=== PATIENT | male | born 1985 | race Caucasian/White ===

== ENCOUNTER 2018-07-17 16:51 | Outpatient (CLI) | payer BC, SELFPAY ==
[2018-07-17 17:03] LABS: Bilirubin Negative (Negative); Blood Negative (Negative); Clarity Clear; Glucose Negative (Negative); Ketones Negative (Negative); Leukocyte Esterase Negative (Negative); Nitrite Negative (Negative); Urobilinogen 0.2 EU/dL (Up TO 0.2)
== END 2018-07-17 17:11 ==
PROVIDERS: PCP Nurse Practitioner; Visit Provider Urology
DX: R30.0 Dysuria (principal)
CPT/HCPCS: 81003; 87086

== ENCOUNTER 2023-05-20 15:59 | Outpatient (CLI) | payer BC, SELFPAY ==
--- NOTE | 2023-05-20 14:45 | DI.RAD_ITS ---
Exam(s) XR KNEE RT 3V AP,LAT,DHAVAL EXAM: XR KNEE RT 3V AP,LAT,DHAVAL CLINICAL HISTORY: RIGHT KNEE PAIN. TECHNIQUE: 2D digital imaging was performed. Three views. COMPARISON: No exams were available for comparison FINDINGS: BONES: No acute fracture is present. No bony destructive lesion is seen. JOINTS: The knee is normally aligned. No joint effusion is seen. Joint spaces are maintained. Ther e is minimal spurring at the articular aspect of the patella. SOFT TISSUE: Normal. IMPRESSION: Patellofemoral degenerative changes. DATA REPOSITORY: RADIATION DOSE DELIVERED:
== END 2023-05-20 16:00 | disposition home or self-care (01) ==
LOC: DIORS 15:59
PROVIDERS: PCP Family Medicine; Visit Provider Student in an Organized Health Care Education/Training Program
DX: M17.11 Unilateral primary osteoarthritis, right knee (principal)
CPT/HCPCS: 73562